=== PATIENT | male | born 1955 | race Caucasian/White ===

== ENCOUNTER 2017-03-06 21:05 | Inpatient (IN) | payer OTHER ==
[~2017-03-06] VITALS: Ht 182.9 cm; Wt 147.2 kg
[2017-03-06 21:25] VITALS: BP 132/80
[2017-03-06] MEDS ORDERED: EPIPEN 2-PAK1 MG/ML IJ (21:30)
[2017-03-06 21:57] VITALS: BP 134/76
[2017-03-06 22:20] VITALS: BP 134/76
[2017-03-06] MEDS ORDERED: MEDROL DOSEPAK4 MG PO (23:12)
[2017-03-07 00:06] VITALS: BP 132/78
[2017-03-07 00:30] VITALS: BP 149/71
[2017-03-07 00:57] LABS: BASO % 0.4 % (0.0-1.0); EOS % 0.2 % (1.0-4.0); HEMATOCRIT 46.8 % (42.0-52.0); HEMOGLOBIN 16.1 g/dl (14.0-18.0); LYMPH # 1.4 10*3/uL (1.3-4.4); LYMPH % 16.9 % (27.0-41.0); MEAN CELL VOLUME 89.7 fl (80.0-94.0); MEAN CORPUSCULAR HGB 30.8 pg (27.0-31.0); MEAN CORPUSCULAR HGB CONC 34.4 g/dl (33.0-37.0); MEAN PLATELET VOLUME 10.1 fl (9.6-12.3); MONO # 0.4 10*3/uL (0.1-1.0); NEUT # 6.3 10*3/uL (2.3-7.9); NEUT % 77.3 % (47.0-73.0); PLATELET COUNT AUTOMATED 176 10*3/uL (130-400); RED BLOOD COUNT 5.22 10*6/uL (4.50-5.90); RED CELL DISTRI WIDTH 13.4 % (0-14.5); WHITE BLOOD COUNT 8.2 10*3/uL (4.8-10.8)
[2017-03-07 01:11] LABS: INTERNATIONAL NORM RATIO 1.1 (2.0-3.5); PROTHROMBIN TIME 11.4 SECONDS (9.0-12.4)
[2017-03-07 01:13] LABS: ALBUMIN 3.1 gm/dl (3.1-4.5); ALKALINE PHOSPHATASE 64 U/L (45-117); BILIRUBIN, TOTAL 0.5 mg/dl (0.2-1.0); BUN 29 mg/dl (7-24); CARBON DIOXIDE 20 mmol/L (21-32); CHLORIDE 107 mmol/L (98-107); CHOLESTEROL 193 mg/dL (<200); EST GLOM FILT AFRICAN AMERICAN 52 ml/min; HDL CHOLESTEROL 32 mg/dl (40-60); LDL CHOLESTEROL 114 mg/dL (9-159); MAGNESIUM 1.9 mg/dL (1.5-2.1); PHOSPHOROUS 1.6 mg/dL (2.5-4.9); POTASSIUM 3.8 mmol/L (3.5-5.1); SGOT/AST 36 IU/L (3-35); SGPT/ALT 45 U/L (12-78); SODIUM 138 mmol/L (136-145); TOTAL PROTEIN 6.1 gm/dL (6.4-8.2); TRIGLYCERIDES 234 mg/dl (<150); VLDL CHOLESTEROL 47 mg/dL (6-40)
[2017-03-07 01:14] LABS: FREE T4 0.88 ng/dl (0.76-1.46); HEMOGLOBIN A1c 6.4 % (4.8-5.6)
[2017-03-07 01:16] LABS: GLUCOSE 250 mg/dL (65-99); TROPONIN I < 0.015 ng/ml (<0.045)
[2017-03-07 01:56] LABS: FOLIC ACID 8.61 ng/mL (>5.38); VITAMIN D, 25-HYDROXY 35.4 ng/mL (30-100)
[2017-03-07 04:00] VITALS: BP 153/88
[2017-03-07 08:00] VITALS: BP 144/90
[2017-03-07] MEDS ORDERED: PREDNISONE50 MG PO (12:08)
[2017-03-07] MEDS ORDERED: EPIPEN 2-PAK1 MG/ML IJ (12:26)
== END 2017-03-07 12:43 | disposition home or self-care (01) | DRG 915 ==
LOC: ED 21:05 → EDHOLD 03-07 00:04 → ICCU 03-07 00:09
PROVIDERS: Student in an Organized Health Care Education/Training Program
DX: T78.09XA Anaphylactic reaction due to other food products, initial encounter (principal); N17.0 Acute kidney failure with tubular necrosis; E44.0 Moderate protein-calorie malnutrition; Z68.41 Body mass index [BMI] 40.0-44.9, adult; I10 Essential (primary) hypertension; E66.01 Morbid (severe) obesity due to excess calories; T78.49XA Other allergy, initial encounter; I44.0 Atrioventricular block, first degree; E11.65 Type 2 diabetes mellitus with hyperglycemia; E78.1 Pure hyperglyceridemia; R74.0 Nonspecific elevation of levels of transaminase and lactic acid dehydrogenase [LDH]; E83.39 Other disorders of phosphorus metabolism; E83.51 Hypocalcemia; Z91.018 Allergy to other foods; Z83.6 Family history of other diseases of the respiratory system; Z83.3 Family history of diabetes mellitus; Z82.49 Family history of ischemic heart disease and other diseases of the circulatory system; Z79.899 Other long term (current) drug therapy